=== PATIENT | female | born 1965 | race Caucasian/White ===

== ENCOUNTER → 2024-01-22 13:34 | Outpatient (REF) | payer OTHER, SELFPAY | LOC: HWRAD 13:34 | PROVIDERS: ATTENDING PHYSICIAN Obstetrics & Gynecology Gynecologic Oncology; FAMILY PHYSICIAN Family Medicine | DX: C54.1 Malignant neoplasm of endometrium (principal); N92.4 Excessive bleeding in the premenopausal period; Z01.818 Encounter for other preprocedural examination | CPT/HCPCS: 71260; 74177; Q9967 ==

== ENCOUNTER 2024-01-30 06:34 | Day surgery (SDC) | payer OTHER, SELFPAY ==
[2024-01-30] VITALS (13 sets, daily range): BP systolic 126–156; BP diastolic 67–92; BMI 31.8
[2024-01-30] MEDS: CELEBREX 200 MG PO (10:34)
[2024-01-30] MEDS: NEURONTIN 300 MG PO (10:34)
[2024-01-30] MEDS: TYLENOL 1000 MG PO (10:34)
[2024-01-30] MEDS: NORMOSOL-R 1000 IV (10:39)
[2024-01-30] MEDS: ZOFRAN 4 MG IV (14:52)
[2024-01-30] MEDS: COMPAZINE 5 MG IV (15:24)
[2024-01-30] MEDS: SUBLIMAZE 50 MCG IV ×2 (15:44→16:08)
== END 2024-01-30 18:06 | disposition home or self-care (01) ==
LOC: SDS 06:34
PROVIDERS: ATTENDING PHYSICIAN Obstetrics & Gynecology Gynecologic Oncology
DX: C54.1 Malignant neoplasm of endometrium (principal); D25.9 Leiomyoma of uterus, unspecified; N83.8 Other noninflammatory disorders of ovary, fallopian tube and broad ligament; D27.0 Benign neoplasm of right ovary
CPT/HCPCS: 58542; 88307; 88309; 86850; 86900; 86901; 88112; 88341; 88342; 88360; 93005

== ENCOUNTER → 2024-02-29 08:24 | Outpatient (REF) | payer OTHER, SELFPAY | LOC: PET 08:24 | PROVIDERS: ATTENDING PHYSICIAN Obstetrics & Gynecology Gynecologic Oncology | DX: C54.1 Malignant neoplasm of endometrium (principal) | CPT/HCPCS: 78815; A9552 ==

== ENCOUNTER → 2024-11-15 12:25 | Outpatient (REF) | payer OTHER, SELFPAY | LOC: RAD 12:25 | PROVIDERS: ATTENDING PHYSICIAN Obstetrics & Gynecology Gynecologic Oncology; FAMILY PHYSICIAN Family Medicine | DX: C54.1 Malignant neoplasm of endometrium (principal); I10 Essential (primary) hypertension | CPT/HCPCS: 71260; 74177; Q9967 ==

== ENCOUNTER → 2025-08-13 06:50 | Outpatient (REF) | payer OTHER, SELFPAY | LOC: RAD 06:50 | PROVIDERS: ATTENDING PHYSICIAN Obstetrics & Gynecology Gynecologic Oncology; FAMILY PHYSICIAN Family Medicine | DX: C54.1 Malignant neoplasm of endometrium (principal); I10 Essential (primary) hypertension; Z12.31 Encounter for screening mammogram for malignant neoplasm of breast | CPT/HCPCS: 71260; 74177; Q9967 ==